=== PATIENT | male | born 1990 | race African-American/Black ===

== ENCOUNTER 2021-10-17 06:03 | Emergency (ER) | payer OTHER ==
[~2021-10-17] VITALS: Ht 167.6 cm; Wt 81.6 kg
[2021-10-17 07:00] LABS: HEMATOCRIT 47.6 % (36.7-47.1); MEAN CORPUSCULAR HEMOGLOBIN 30.1 uug (23.8-33.4); MEAN CORPUSCULAR VOLUME 89.5 fL (73.0-96.2); PLATELET COUNT (AUTO) 329 K/uL (152-348)
--- NOTE | 2021-10-17 08:13 | NUR ---
DR MAYNARD REVIEWED TEST RESULTS WITH PATIENT.DISCHARGE INSTRUCTIONS RENDERRED.
[2021-10-17 08:37] LABS: BILIRUBIN,TOTAL 0.6 mg/dL (0.2-1.0); CREATININE 1.2 mg/dL (0.6-1.3); POTASSIUM 4.2 mmol/L (3.5-5.1); TOTAL PROTEIN, SERUM 8.3 g/dL (6.4-8.2)
== END 2021-10-17 08:14 | disposition home or self-care (01) ==
LOC: CANPREER → ER 06:23
DX: S70.322A Blister (nonthermal), left thigh, initial encounter (principal); F17.210 Nicotine dependence, cigarettes, uncomplicated; X58.XXXA Exposure to other specified factors, initial encounter; Y93.89 Activity, other specified; Y92.89 Other specified places as the place of occurrence of the external cause; Y99.8 Other external cause status
CPT/HCPCS: 36415; 85025; 85651; 86140; A4663